=== PATIENT | female | born 1965 | race Caucasian/White ===

== ENCOUNTER → 2019-12-18 | Outpatient (CLI) | payer BC ==
[~2019-12-18] MED LIST: ASPI325; Cyclobenzaprine5 MG PO; DIPATR PO; IBUP800 PO; Norco 5-325 Ta1 EACH PO; PLAVIX; RXLORA1 PO; Valium5 MG PO
== END | disposition home or self-care (01) ==
LOC: LAB 08:10 → LAB SHORT 08:10 → LAB FUT 11-19 09:10
DX: K52.9 Noninfective gastroenteritis and colitis, unspecified (principal)
CPT/HCPCS: 87015; 87045; 87046; 87205; 87493; 87899

== ENCOUNTER 2020-04-30 07:16 | Day surgery (SDC) | payer BC ==
[~2020-04-30] VITALS: Ht 167.6 cm; Wt 75.7 kg
--- NOTE | 2020-04-30 08:45 | NUR ---
04/30/20 0845 Radha Sanchez BLOCK COMPLETE BY DR. SCHMIDT PRIOR TO SURGERY START.
--- NOTE | 2020-04-30 09:18 | NUR ---
04/30/20 0918 Gala Knight SENT HOME WITH PT PER DR. CARY.
== END 2020-04-30 09:34 | disposition home or self-care (01) ==
LOC: ORSCSDS 07:16
PROVIDERS: Orthopaedic Surgery
PROC: 01N50ZZ Release Median Nerve, Open Approach (ICD-10-PCS; principal; 2020-04-30 08:30)
DX: G56.02 Carpal tunnel syndrome, left upper limb (principal)
CPT/HCPCS: J2250; J3010; J7120

== ENCOUNTER → 2023-07-24 | Outpatient (CLI) | payer BC ==
[2023-07-28 21:09] LABS: HPV HIGH RISK BY TMA Not Detected; HPV SOURCE Vaginal
== END ==
LOC: LAB SHORT 09:18 → LAB 09:18
PROVIDERS: Obstetrics & Gynecology
DX: Z12.4 Encounter for screening for malignant neoplasm of cervix (principal)
CPT/HCPCS: 87624; G0123

== ENCOUNTER 2024-12-08 12:24 | Emergency (ER) | payer BC, OTHER ==
[~2024-12-08] VITALS: Ht 167.6 cm; Wt 72.6 kg
[~2024-12-08 12:24] MED LIST changes: +ESTRADIOL42.5 GM VAG; +MIRALAX17 GM PO
[2024-12-08 13:07] VITALS: BP 105/63
[2024-12-08] MEDS ORDERED: Preparation H26 GM TOP (15:26)
== END 2024-12-08 15:34 | disposition home or self-care (01) ==
LOC: ER 12:24
DX: K64.4 Residual hemorrhoidal skin tags (principal); Z87.891 Personal history of nicotine dependence; Z88.0 Allergy status to penicillin; Z79.899 Other long term (current) drug therapy; Z59.89 Other problems related to housing and economic circumstances
CPT/HCPCS: 82272; 99283